=== PATIENT | female | born 1980 | race Caucasian/White ===

== ENCOUNTER 2018-11-10 19:09 | Emergency (ER) | payer MEDICAID ==
--- NOTE | 2018-11-10 19:34 | NUR ---
CALLED IN [facility], NO RESPONSE
--- NOTE | 2018-11-10 19:45 | NUR ---
CALLED IN [facility], NO RESPONSE
--- NOTE | 2018-11-10 20:03 | NUR ---
CALLED IN [facility], NO RESPONSE.
== END 2018-11-10 20:04 | disposition home or self-care (01) ==
LOC: ER 19:22
DX: Z53.21 Procedure and treatment not carried out due to patient leaving prior to being seen by health care provider (principal)